=== PATIENT | male | born 1975 | race Two or more races ===

== ENCOUNTER → 2017-04-30 | Outpatient (CLI) | payer OTHER ==
--- NOTE | 2017-04-30 11:14 | US ---
EXAMINATION TYPE: US kidneys/renal and bladder DATE OF EXAM: 04/30/2017 COMPARISON: NONE CLINICAL HISTORY: R10.9 R FLANK PAIN. Pt states right flank pain x 1 month EXAM MEASUREMENTS: Right Kidney: 11.1 x 5.1 x 5.3 cm Left Kidney: 12.2 x 5.6 x 5.2 cm Morbidly obese pt, difficult exam Right Kidney: Appeared wnl, lower pole gassed out Left Kidney: Appeared wnl, lower pole gassed out Bladder: wnl Bilateral Jets seen: No There is no evidence for hydronephrosis at this point in time. No nephrolithiasis is seen. No lula s are identified. The urinary bladder is anechoic. Bilateral ureteral jets are seen. IMPRESSION: No significant abnormality on this limited study.
--- NOTE | 2017-04-30 11:30 | XR ---
EXAMINATION TYPE: XR lumbosacral spine min 4V DATE OF EXAM: 04/30/2017 CLINICAL HISTORY: Back pain with fall approximately one month ago. TECHNIQUE: Frontal, lateral, and oblique images of the lumbar spine are obtained. COMPARISON: None FINDINGS: There are 5 lumbar type vertebral bodies identified. There are transversely oriented, min imally superiorly displaced fractures of the transverse processes of L1 and later this patient's hist ory of fall and back pain. The lumbar spine shows satisfactory alignment without evidence of compress ion deformity. Vertebral body heights and disk space heights are within normal limits. The oblique images appear within normal limits. The overlying soft tissue appears unremarkable. Minimal facet ar thropathy is seen at L4-L5 and L5-S1. IMPRESSION: 1. Transversely oriented minimally displaced fractures of the bilateral transverse processes of L1. 2. No compression deformity.
== END | disposition home or self-care (01) ==
LOC: RADUSWWP 10:21
PROVIDERS: ATTEND Internal Medicine
DX: M54.5 Low back pain (principal); R10.9 Unspecified abdominal pain
CPT/HCPCS: 72110; 76770

== ENCOUNTER → 2018-01-08 | Outpatient (CLI) | payer OTHER ==
--- NOTE | 2018-01-09 09:25 | XR ---
EXAMINATION TYPE: XR chest 2V DATE OF EXAM: 01/08/2018 COMPARISON: None INDICATION: Anterior chest pain TECHNIQUE: Frontal and lateral views of the chest are obtained. FINDINGS: The heart size is normal. The pulmonary vasculature is normal. The lungs are clear. IMPRESSION: 1. No acute pulmonary process.
--- NOTE | 2018-01-09 09:28 | XR ---
EXAMINATION TYPE: XR cervical spine limited DATE OF EXAM: 01/08/2018 COMPARISON: None HISTORY: Cervical pain TECHNIQUE: Three-view cervical spine FINDINGS: Prevertebral space is normal. Disc heights are preserved. Vertebral body heights are preser vicente. Alignment is normal. C7-T1 interspace is poorly visualized on the lateral projection. IMPRESSION: 1. Normal three-view cervical spine as visualized.
== END | disposition home or self-care (01) ==
LOC: RADXRMAIN 17:13
PROVIDERS: ATTEND Internal Medicine
DX: M54.2 Cervicalgia (principal); R07.9 Chest pain, unspecified
CPT/HCPCS: 71046; 72040

== ENCOUNTER 2018-09-06 17:54 | Emergency (ER) | payer OTHER ==
[2018-09-06] MEDS ORDERED: SODIUM CHLORIDE 0.9% 1,000 ML IV STA (18:13)
--- NOTE | 2018-09-06 18:29 | ED ---
Abdominal Pain HPI - General Source: patient, RN notes reviewed Mode of arrival: ambulatory Limitations: no limitations <Espinoza Georges - Last Filed: 09/06/18 20:37> <Terra Randle - Last Filed: 09/08/18 07:44> - General Chief Complaint: Abdominal Pain Stated Complaint: Stomach pain Time Seen by Provider: 09/06/18 18:04 - History of Present Illness Initial Comments: 43-year-old male presents emergency Department chief complaint of right flank pain. Patient states she's noticed increased urinary frequency and noticed dark urine which is concern about possible blood. Patient states that he has pain in his right upper abdomen rates his back. Patient has no history kidney stones. Patient states he did have a prior cholecystectomy one year ago. He reports no fevers or chills. States the pain radiates down right into his right testicle, swelling, lesions sores or any difficulty urinating. Patient states he has had some frequency mild dysuria. Patient denies any diarrhea constipation no melena or hematochezia. (Espinoza Georges) - Related Data Allergies Allergy/AdvReac Type Severity Reaction Status Date / Time No Known Allergies Allergy Verified 09/06/18 18:03 Review of Systems ROS Other: All systems not noted in ROS Statement are negative. <Espinoza Georges - Last Filed: 09/06/18 20:37> ROS Other: All systems not noted in ROS Statement are negative. <Terra Randle - Last Filed: 09/08/18 07:44> ROS Statement: Those systems with pertinent positive or pertinent negative responses have been documented in the HPI. Past Medical History Past Medical History: Hypertension History of Any Multi-Drug Resistant Organisms: None Reported Past Surgical History: Cholecystectomy Past Psychological History: Depression Smoking Status: Never smoker Past Alcohol Use History: Occasional Past Drug Use History: None Reported <Espinoza Georges - Last Filed: 09/06/18 20:37> General Exam Limitations: no limitations General appearance: alert, in no apparent distress Head exam: Present: atraumatic, normocephalic, normal inspection Neck exam: Present: normal inspection. Absent: tenderness, meningismus, lymphadenopathy Respiratory exam: Present: normal lung sounds bilaterally. Absent: respiratory distress, wheezes, rales, rhonchi, stridor Cardiovascular Exam: Present: regular rate, normal rhythm, normal heart sounds. Absent: systolic murmur, diastolic murmur, rubs, gallop, clicks GI/Abdominal exam: Present: soft, tenderness (Mild right upper), normal bowel sounds. Absent: distended, guarding, rebound, rigid Back exam: Present: CVA tenderness (R). Absent: CVA tenderness (L) Skin exam: Present: warm, dry, intact, normal color. Absent: rash <Espinoza Georges - Last Filed: 09/06/18 20:37> Course Vital Signs 09/06/18 09/06/18 09/06/18 17:58 19:01 20:47 Temperature 98.3 F 97.7 F Pulse Rate 88 87 74 Respiratory 16 16 18 Rate Blood Pressure 149/82 156/87 147/74 O2 Sat by Pulse 98 100 98 Oximetry Medical Decision Making - Lab Data Result diagrams: 09/06/18 18:22 09/06/18 18:22 <Espinoza Georges - Last Filed: 09/06/18 20:37> - Lab Data Result diagrams: 09/06/18 18:22 09/06/18 18:22 <Terra Randle - Last Filed: 09/08/18 07:44> - Medical Decision Making 43-year-old male presents emergency from for right-sided abdominal flank pain radiating to his testicle. Patient CT does not reveal any evidence of kidney stone and labs, urinalysis unremarkable. CT does show a right inguinal hernia. Patient has mild hypokalemia which was replaced in emergency department. Patient will be discharged with follow-up urology significant scrotal pain, fl ank pain. I do not feel this is directly related to his scrotum is is no acute changes and no localized tenderness. (Espinoza Georges) I was available for consultation in the emergency department. The history and physical exam were done by the Midlevel Provider. Medical decision making was done by the Midlevel Provider. I have reviewed the chart, however was not consulted specifically or made aware of this patient by the above midlevel provider and did not personally evaluate, interact with, or disposition this patient on the day of their visit Chart was dictated using [employer] dictation software. Attempts were made to correct any dictation errors however some typographical errors may persist. (Randle,Terra P) - Lab Data Lab Results 09/06/18 09/06/18 09/06/18 Range/Units 18:22 18:22 19:55 WBC 5.0 (3.8-10.6) k/uL RBC 5.01 (4.30-5.90) m/uL Hgb 13.2 (13.0-17.5) gm/dL Hct 40.9 (39.0-53.0) % MCV 81.6 (80.0-100.0) fL MCH 26.3 (25.0-35.0) pg MCHC 32.2 (31.0-37.0) g/dL RDW 16.2 H (11.5-15.5) % Plt Count 207 (150-450) k/uL Neutrophils % 54 % Lymphocytes % 37 % Monocytes % 5 % Eosinophils % 3 % Basophils % 1 % Neutrophils # 2.7 (1.3-7.7) k/uL Lymphocytes # 1.8 (1.0-4.8) k/uL Monocytes # 0.2 (0-1.0) k/uL Eosinophils # 0.1 (0-0.7) k/uL Basophils # 0.0 (0-0.2) k/uL Anisocytosis Slight Sodium 141 (137-145) mmol/L Potassium 3.1 L (3.5-5.1) mmol/L Chloride 107 (98-107) mmol/L Carbon Dioxide 29 (22-30) mmol/L Anion Gap 5 mmol/L BUN 14 (9-20) mg/dL Creatinine 1.04 (0.66-1.25) mg/dL Est GFR (CKD-EPI)AfAm >90 (>60 ml/min/1.73 sqM) Est GFR (CKD-EPI)NonAf 87 (>60 ml/min/1.73 sqM) Glucose 86 (74-99) mg/dL Calcium 9.2 (8.4-10.2) mg/dL Total Bilirubin 0.5 (0.2-1.3) mg/dL AST 43 (17-59) U/L ALT 50 (21-72) U/L Alkaline Phosphatase 78 (38-126) U/L Total Protein 6.5 (6.3-8.2) g/dL Albumin 3.8 (3.5-5.0) g/dL Amylase 43 (30-110) U/L Lipase 56 (23-300) U/L Urine Color Yellow Urine Appearance Clear (Clear) Urine pH 7.0 (5.0-8.0) Ur Specific Nelson 1.020 (1.001-1.035) Urine Protein Negative (Negative) Urine Glucose (UA) Negative (Negative) Urine Ketones Trace H (Negative) Urine Blood Negative (Negative) Urine Nitrite Negative (Negative) Urine Bilirubin Negative (Negative) Urine Urobilinogen <2.0 (<2.0) mg/dL Ur Leukocyte Esterase Negative (Negative) Disposition Is patient prescribed a controlled substance at d/c from ED?: No Time of Disposition: 20:40 <Espinoza Georges M - Last Filed: 09/06/18 20:37> <Terra Randle P - Last Filed: 09/08/18 07:44> Clinical Impression: Right flank pain, Abdominal pain, Inguinal hernia Disposition: HOME SELF-CARE Condition: Stable Instructions (If sedation given, give patient instructions): Abdominal Pain (ED) Additional Instructions: Please return to the Emergency Department if symptoms worsen or any other concerns. Referrals: Milena Balbuena MD [Primary Care Provider] - 1-2 days Jean Grossman MD [STAFF PHYSICIAN] - 1-2 days
[2018-09-06 18:40] LABS: Anisocytosis Slight; Basophils % (A) 1 %; Eosinophils # (A) 0.1 k/uL (0-0.7); Eosinophils % (A) 3 %; HCT 40.9 % (39.0-53.0); HGB 13.2 gm/dL (13.0-17.5); Lymphocytes # (A) 1.8 k/uL (1.0-4.8); Lymphocytes % (A) 37 %; MCH 26.3 pg (25.0-35.0); MCHC 32.2 g/dL (31.0-37.0); MCV 81.6 fL (80.0-100.0); Mean Platelet Volume 7.1; Monocytes # (A) 0.2 k/uL (0-1.0); Monocytes % (A) 5 %; Neutrophils # (A) 2.7 k/uL (1.3-7.7); Neutrophils % (A) 54 %; Platelet Count 207 k/uL (150-450); RBC 5.01 m/uL (4.30-5.90); RDW 16.2 % (11.5-15.5)
[2018-09-06 18:50] LABS: ALT 50 U/L (21-72); AST 43 U/L (17-59); Albumin 3.8 g/dL (3.5-5.0); Alkaline Phosphatase 78 U/L (38-126); Amylase 43 U/L (30-110); Anion Gap 5 mmol/L; Blood Urea Nitrogen 14 mg/dL (9-20); Calcium 9.2 mg/dL (8.4-10.2); Carbon Dioxide 29 mmol/L (22-30); Chloride 107 mmol/L (98-107); Glucose 86 mg/dL (74-99); Lipase 56 U/L (23-300); Potassium 3.1 mmol/L (3.5-5.1); Sodium 141 mmol/L (137-145); Total Bilirubin 0.5 mg/dL (0.2-1.3); Total Protein 6.5 g/dL (6.3-8.2)
--- NOTE | 2018-09-06 19:00 | CT ---
EXAMINATION TYPE: CT abdomen pelvis wo con DATE OF EXAM: 09/06/2018 COMPARISON: None HISTORY: Right flank pain and hematuria CT DLP: 1912 mGycm Automated exposure control for dose reduction was used. TECHNIQUE: Helical acquisition of images from the lung bases through the pelvis. FINDINGS: Lack of intravenous contrast could compromise sensitivity. Right inguinal hernia contains f at. Small umbilical hernia contains fat. Some artifact present in the pelvis is noted. LUNG BASES: No significant abnormality is appreciated. AORTA: No significant abnormality is appreciated. LIVER/GB: The liver is enlarged. Patient is post cholecystectomy. PANCREAS: No significant abnormality is seen. SPLEEN: No significant abnormality is seen. ADRENALS: No significant abnormality is seen. KIDNEYS: No significant abnormality is seen. REPRODUCTIVE ORGANS: No significant abnormality is seen. URINARY BLADDER: Not distended. Lack of distention may cause bladder wall thickening, correlate to e xclude cystitis. BOWEL: No significant abnormality is seen. FREE AIR: No Free Air is visible. ASCITES: None visible. PELVIC ADENOPATHY: None visualized. RETROPERITONEAL ADENOPATHY: No Retroperitoneal Adenopathy visible. OSSEOUS STRUCTURES: Spondylosis present in the visualized spine.. IMPRESSION: NONCONTRAST EXAM. NO EVIDENT RENAL CALCULUS OR URETERAL CALCULUS. Additional findings above.
[2018-09-06] MEDS ORDERED: POTASSIUM CHLORIDE ER 20 MEQ TAB.ER PO STA (19:28)
[2018-09-06 20:05] LABS: Appearance,Urine Clear (Clear); Bilirubin,Urine Negative (Negative); Blood,Urine Negative (Negative); Color,Urine Yellow; Glucose,Urine (UA) Negative (Negative); Ketones,Urine Trace (Negative); Leukocyte Esterase,Urine Negative (Negative); Nitrite,Urine Negative (Negative); Protein,Urine Negative (Negative); Urobilinogen,Urine <2.0 mg/dL (<2.0)
[2018-09-06 21:03] VITALS: BP 147/74; PULSE 74; RESP 18; TEMP 97.7
== END 2018-09-06 20:50 | disposition home or self-care (01) ==
LOC: EC 17:54
DX: K40.90 Unilateral inguinal hernia, without obstruction or gangrene, not specified as recurrent (principal); R10.11 Right upper quadrant pain; E87.6 Hypokalemia; R35.0 Frequency of micturition; R30.0 Dysuria; M54.9 Dorsalgia, unspecified; Z90.49 Acquired absence of other specified parts of digestive tract
CPT/HCPCS: 36415; 74176; 80053; 81003; 82150; 83690; 85025; 96360; 99284